=== PATIENT | female | born 1935 | race Caucasian/White ===

== ENCOUNTER 2018-06-30 08:33 | Inpatient (IN) ==
--- NOTE | 2018-06-30 09:00 | Emergency Department Note ---
Disposition Clinical Impression: Chest pain Qualifiers: Chest pain type: unspecified Qualified Code(s): R07.9 - Chest pain, unspecified Disposition: Admitted As Inpatient Condition: Fair Referrals: Sandee Willams CNP [Primary Care Provider] - Forms: ED Satisfaction Letter Time of Disposition: 10:04 General Adult HPI - General Chief complaint: ED Chest Pain Stated complaint: CP Time Seen by Provider: 06/30/18 08:38 Source: patient, EMS Mode of arrival: EMS Limitations: no limitations Nursing Notes Reviewed: Yes Vital Signs Reviewed: Yes - History of Present Illness HPI Narrative: Patient is an 83-year-old female with a past medical history of CAD with cardiac stent placed 2 years ago, CHF, uses 2L NC at night, HLD, HTN, thyroid disorder presents to the emergency room in for evaluation of chest pain that started yesterday evening at approximately 5:00 PM. The patient states that her chest pain was sudden in onset, left-sided, pressure-like, without radiation , exertion or nausea. The patient states that the chest pain continued throughout the night as a 7/10 pain and this morning at 7:00 AM she took 2 of her home nitroglycerin with no relief. The patient states at that time she decided to call the squad to come in to be evaluated and in the squad she received a full dose of aspirin and she received 2 sublingual nitroglycerin which resolved her pain. Only other complaint is a patient states over the past 2 weeks she has had a cold and a cough that brings up clear mucus. Pain Scale: 3 - Related Data Home Medications Medication Instructions Recorded Confirmed Ascorbate Calcium [Vitamin C] 500 mg PO AD 10/28/17 05/29/18 Aspirin [Lo-Dose Aspirin EC] 81 mg PO DAILY 10/28/17 05/29/18 Atorvastatin [Lipitor] 40 mg PO DAILY 10/28/17 05/29/18 Estrogens, Conjugated [Premarin] 0.9 mg PO AD 10/28/17 05/29/18 Gabapentin [Neurontin] 300 mg PO TID 10/28/17 05/29/18 Irbesartan [Avapro] 150 mg PO DAILY 10/28/17 05/29/18 Levothyroxine [Synthroid] 50 mcg PO DAILY 10/28/17 05/29/18 Multivit-Min/FA/Lycopen/Lutein 1 each PO DAILY 10/28/17 05/29/18 [Centrum Silver Tablet] Omeprazole [PriLOSEC] 40 mg PO DAILY 10/28/17 03/03/18 Turm/Ging/Sumit/Yuc/Smith/Viridiana/Hor 1 each PO DAILY 10/28/17 05/29/18 [Tumersaid Tablet] predniSONE [PredniSONE] 10 mg PO DAILY 10/28/17 05/29/18 Pantoprazole Sodium 40 mg PO DAILY 05/29/18 05/29/18 Previous Rx's Medication Instructions Recorded HYDROcodone/Acet 5/325 mg [[place] 1 tab PO Q6H #10 tab 10/28/17 5-325 mg] Budesonide/Formoterol 160/4.5 2 puff IH BIDR 5 Days #1 inhaler 05/30/18 [Symbicort 160/4.5] Furosemide [Lasix] 40 mg PO DAILY #30 tablet 05/30/18 Metoprolol [Lopressor] 50 mg PO BID #60 tablet 05/30/18 Allergies Allergy/AdvReac Type Severity Reaction Status Date / Time latex AdvReac See Verified 03/03/18 10:49 Comments Bandaids AdvReac Rash Uncoded 03/03/18 10:49 All systems ED: reviewed and negative except as stated. Review of Systems: As Per HPI Constitutional: Denies: fever Cardiovascular: Reports: chest pain. Denies: palpitations, dyspnea on exertion , orthopnea, edema, syncope, paroxysmal nocturnal dyspnea Respiratory: Denies: cough, dyspnea Gastrointestinal: Denies: abdominal pain, nausea, vomiting Musculoskeletal: Denies: back pain, neck pain Integumentary: Denies: rash Past Medical History - Past Medical History Attestation: Yes The following information was validated with the patient. Medical history: Reports: CHF, GERD, hyperlipidemia, hypertension, myocardial infarction, thyroid disease Psychiatric history: Reports: no psych history - Social History Smoking Status: Former smoker Smokeless Tobacco Status: No Alcohol use: Reports: none Drug use: Reports: none Physical Exam CONSTITUTIONAL: Well-appearing; well-nourished; A&O X 3, in no apparent distress. Vitals within normal limits. HEAD: Normocephalic; atraumatic EYES: PERRL, no scleral icterus NOSE: The nose is normal in appearance without rhinorrhea NECK: No JVD or distended neck veins RESP: Normal chest excursion with respiration; breath sounds clear and equal bilaterally, except for the right has minimal wheezing with expiration; no rhonchi or rales CARD: Regular rhythm, without murmurs, rub or gallop ABD: Non-distended; non-tender, soft, without rigidity, rebound or guarding,no pulsatile mass CHEST: No pain with palpation SKIN: Normal for age and race; warm and dry without diaphoresis ; no apparent lesions EXTREMITIES: Pulses are 2 plus and equal times 4 extremities, minimal bilateral pitting edema and no calf muscle pain - General Limitations: no limitations General appearance: alert, in no apparent distress Course Course Narrative: Patient is an 83-year-old female with a history of CAD including 1 stent presents for evaluation of chest pain that improved with nitroglycerin. She stated a full dose of aspirin and squad. Initial EKG done at 8:44 shows sinus rhythm at a rate of 64 bpm with no ischemia. The patient has a moderate HEART score, and thus will require admission to the hospital for her chest pain alone. Will continue with cardiac workup, patient asymptomatic at this time. Will provide a breathing treatment given history of cough over past couple of weeks with wheezing on exam. - Reevaluation(s) Reevaluation #1: Review the patient's medical records does appear that she was recently admitted to hospital for dyspnea. Patient had a echo done on March 312017 that showed EF of 60% with mild LV diastolic dysfunction. Discussed the patient's case with the hospitalist on-call, Dr. Vera, he agrees to accept the patient for Chest Pain. Discussed this with the patient she agrees. Time: 10:04 Vital Signs Temperature 98.5 F 06/30/18 08:36 Pulse Rate 64 06/30/18 08:36 Respiratory Rate 18 06/30/18 08:36 Blood Pressure 130/77 06/30/18 08:36 O2 Sat by Pulse Oximetry 96 06/30/18 08:36 Temperature 98.5 F 06/30/18 08:36 Pulse Rate 64 06/30/18 08:36 Respiratory Rate 16 06/30/18 09:41 Blood Pressure 130/77 06/30/18 08:36 O2 Sat by Pulse Oximetry 99 06/30/18 09:41 Oxygen Delivery Oxygen Delivery Room Air Medical Decision Making - Medical Records Medical records reviewed: Yes I reviewed the patient's medical records. - Lab Data Lab results reviewed: Yes I reviewed the patient's lab results. Result diagrams: 06/30/18 08:53 06/30/18 08:53 Lab Results 06/30/18 06/30/18 06/30/18 Range/Units 08:53 08:53 08:53 WBC 9.1 (4.3-11.1) K/mcL RBC 3.91 (3.82-4.97) M/mcL Hgb 12.8 (11.5-15.4) g/dL Hct 38.8 (35.3-44.9) % MCV 99.2 (83.0-100.0) fL MCH 32.7 (28.0-33.3) pg MCHC 33.0 (31.6-35.5) g/dL RDW 14.2 (11.5-14.5) % Plt Count 126 L (140-400) K/mcL MPV 11.1 (9.4-12.4) fL Immature Gran % 0.6 (0-4) % Seg Neutrophils % 60.8 % Lymphocytes % 25.1 % Monocytes % 9.4 % Eosinophils % 3.7 % Basophils % 0.4 % Neutrophils # 5.5 (1.6-8.9) K/mcL Lymphocytes # 2.3 (0.6-4.6) K/mcL Monocytes # 0.9 (0.0-1.3) K/mcL Eosinophils # 0.3 (0.0-0.6) K/mcL Basophils # 0.0 (0.0-0.2) K/mcL Immature Plt Fraction 7.1 H (1.1-6.1) % Sodium 138 (136-145) mEq/L Potassium 4.2 (3.5-5.1) mEq/L Chloride 103 (98-107) mEq/L Carbon Dioxide 31 H (23-29) mEq/L BUN 17 (8-23) mg/dL Creatinine 0.67 (0.60-1.20) mg/dL Est GFR ( Amer) > 60 (> 60) Est GFR (Non-Af Amer) > 60 (> 60) BUN/Creatinine Ratio 25 (6-26) Glucose 124 H (70-105) mg/dL Calculated Osmolality 289 (280-300) Calcium 8.5 L (8.6-10.3) mg/dL Troponin I 0.03 (< 0.04) ng/mL B-Natriuretic Peptide 641 H (Less than 100) pg/mL - Radiology Data Radiology results reviewed: Yes I reviewed the patient's radiology results. Chest X-Ray 06/30/18 08:38 IMPRESSION: No acute cardiopulmonary disease. D/ / 06/30/2018 09:04:37 Juan Diego Means MD / [facility] Interpreting Provider: Juan Diego Means MD - EKG Data EKG #1 EKG attestation: Yes I reviewed and interpreted this EKG. EKG results narrative: Initial EKG done at 8:44 shows sinus rhythm at a rate of 64 bpm. Normal axis. Intervals within normal limits. No signs of ST elevation, ST depression or Q waves present. No signs of ischemia.
[2018-06-30 09:02] LABS: Basophils % 0.4 %; Eosinophils # 0.3 K/mcL (0.0-0.6); Eosinophils % 3.7 %; Hematocrit 38.8 % (35.3-44.9); Hemoglobin 12.8 g/dL (11.5-15.4); Immature Granulocytes % 0.6 % (0-4); Immature Platelets 7.1 % (1.1-6.1); Lymphocytes # 2.3 K/mcL (0.6-4.6); Lymphocytes % 25.1 %; Mean Corpuscular Hemoglobin 32.7 pg (28.0-33.3); Mean Corpuscular Volume 99.2 fL (83.0-100.0); Mean Platelet Volume 11.1 fL (9.4-12.4); Monocytes # 0.9 K/mcL (0.0-1.3); Monocytes % 9.4 %; Neutrophils # 5.5 K/mcL (1.6-8.9); Platelet Count 126 K/mcL (140-400); Red Blood Count 3.91 M/mcL (3.82-4.97); Red Cell Distribution Width 14.2 % (11.5-14.5); Segmented Neutrophils % 60.8 %
[2018-06-30] MEDS ORDERED: Ipratropium/Albuterol Neb 3 ML IH ONE (09:17)
--- NOTE | 2018-06-30 09:33 | Emergency Department Note ---
Disposition Clinical Impression: Chest pain Qualifiers: Chest pain type: unspecified Qualified Code(s): R07.9 - Chest pain, unspecified Disposition: Admitted As Inpatient Condition: Fair General Adult HPI - General Chief complaint: ED Chest Pain Stated complaint: CP Time Seen by Provider: 06/30/18 08:38 Source: patient, EMS Mode of arrival: EMS Limitations: no limitations - History of Present Illness Pain Scale: 3 - Related Data Home Medications Medication Instructions Recorded Confirmed Aspirin [Lo-Dose Aspirin EC] 81 mg PO DAILY 10/28/17 06/30/18 Atorvastatin [Lipitor] 40 mg PO DAILY 10/28/17 06/30/18 Estrogens, Conjugated [Premarin] 0.9 mg PO DAILY 10/28/17 06/30/18 Gabapentin [Neurontin] 300 mg PO TID 10/28/17 06/30/18 Irbesartan [Avapro] 150 - 300 mg PO DAILY 10/28/17 06/30/18 Levothyroxine [Synthroid] 50 mcg PO DAILY 10/28/17 06/30/18 Multivit-Min/FA/Lycopen/Lutein 1 tab PO DAILY 10/28/17 06/30/18 [Centrum Silver Tablet] predniSONE [PredniSONE] 10 mg PO DAILY 10/28/17 06/30/18 Pantoprazole Sodium 40 mg PO DAILY 05/29/18 06/30/18 Furosemide [Lasix] 20 mg PO BID 06/30/18 06/30/18 Nitroglycerin [Nitrostat] 0.4 mg SL Q5M PRN MDD [id number] 06/30/18 06/30/18 Polyethylene Glycol 3350 [MiraLAX] 17 gm PO HS 06/30/18 06/30/18 Timolol [Betimol] 1 drop BOTH EYES BID 06/30/18 06/30/18 Turmeric Root Extract [Turmeric] 500 mg PO DAILY 06/30/18 06/30/18 Previous Rx's Medication Instructions Recorded Budesonide/Formoterol 160/4.5 2 puff IH BIDR 5 Days #1 inhaler 05/30/18 [Symbicort 160/4.5] Metoprolol [Lopressor] 50 mg PO BID #60 tablet 05/30/18 Allergies Allergy/AdvReac Type Severity Reaction Status Date / Time latex AdvReac Rash Verified 06/30/18 10:15 Bandaids AdvReac Rash Uncoded 03/03/18 10:49 Constitutional: Denies: fever Cardiovascular: Reports: chest pain. Denies: palpitations, dyspnea on exertion , orthopnea, edema, syncope, paroxysmal nocturnal dyspnea Respiratory: Denies: cough, dyspnea Gastrointestinal: Denies: abdominal pain, nausea, vomiting Musculoskeletal: Denies: back pain, neck pain Integumentary: Denies: rash Past Medical History - Past Medical History Medical history: Reports: CHF, GERD, hyperlipidemia, hypertension, myocardial infarction, thyroid disease Psychiatric history: Reports: no psych history - Social History Smoking Status: Former smoker Smokeless Tobacco Status: No Alcohol use: Reports: none Drug use: Reports: none Physical Exam - General Limitations: no limitations General appearance: alert, in no apparent distress Course Vital Signs Temperature 98.5 F 06/30/18 08:36 Pulse Rate 64 06/30/18 08:36 Respiratory Rate 18 06/30/18 08:36 Blood Pressure 130/77 06/30/18 08:36 O2 Sat by Pulse Oximetry 96 06/30/18 08:36 Temperature 97.8 F 06/30/18 11:25 Pulse Rate 82 06/30/18 11:25 Respiratory Rate 20 06/30/18 11:25 Blood Pressure 156/84 06/30/18 11:25 O2 Sat by Pulse Oximetry 96 06/30/18 11:25 Oxygen Delivery Oxygen Delivery Room Air Medical Decision Making - Lab Data Result diagrams: 06/30/18 08:53 06/30/18 08:53 Lab Results 06/30/18 06/30/18 06/30/18 Range/Units 08:53 08:53 08:53 WBC 9.1 (4.3-11.1) K/mcL RBC 3.91 (3.82-4.97) M/mcL Hgb 12.8 (11.5-15.4) g/dL Hct 38.8 (35.3-44.9) % MCV 99.2 (83.0-100.0) fL MCH 32.7 (28.0-33.3) pg MCHC 33.0 (31.6-35.5) g/dL RDW 14.2 (11.5-14.5) % Plt Count 126 L (140-400) K/mcL MPV 11.1 (9.4-12.4) fL Immature Gran % 0.6 (0-4) % Seg Neutrophils % 60.8 % Lymphocytes % 25.1 % Monocytes % 9.4 % Eosinophils % 3.7 % Basophils % 0.4 % Neutrophils # 5.5 (1.6-8.9) K/mcL Lymphocytes # 2.3 (0.6-4.6) K/mcL Monocytes # 0.9 (0.0-1.3) K/mcL Eosinophils # 0.3 (0.0-0.6) K/mcL Basophils # 0.0 (0.0-0.2) K/mcL Immature Plt Fraction 7.1 H (1.1-6.1) % Sodium 138 (136-145) mEq/L Potassium 4.2 (3.5-5.1) mEq/L Chloride 103 (98-107) mEq/L Carbon Dioxide 31 H (23-29) mEq/L BUN 17 (8-23) mg/dL Creatinine 0.67 (0.60-1.20) mg/dL Est GFR ( Amer) > 60 (> 60) Est GFR (Non-Af Amer) > 60 (> 60) BUN/Creatinine Ratio 25 (6-26) Glucose 124 H (70-105) mg/dL Calculated Osmolality 289 (280-300) Calcium 8.5 L (8.6-10.3) mg/dL Troponin I 0.03 (< 0.04) ng/mL B-Natriuretic Peptide 641 H (Less than 100) pg/mL Attestation Statement - Attestation Attestation: I examined this patient and my medical decision-making was reviewed with the CEO ZIFF DAVIS/PA/Advanced Practice Nurse/Resident Physician. I agree with the documented findings, disposition and treatment plan as described except to the extent set forth below. I did see the patient spoke with her and examined her and she does have chest discomfort which is concerning for ischemia. She has also had upper respiratory symptoms for the last several weeks. I did review her EKG showing normal sinus rhythm with a rate of 64 with some isolated T-wave inversion in aVL and T-wave flattening in lead V6. The flattening is new however it looks like she did have aVL inversion of the T-wave on a previous EKG and so the patient will have further assessment here including chest x-ray, labs, observation, monitoring [id number]
[2018-06-30 09:34] LABS: BUN/Creatinine Ratio 25 (6-26); Blood Urea Nitrogen 17 mg/dL (8-23); Calcium 8.5 mg/dL (8.6-10.3); Carbon Dioxide 31 mEq/L (23-29); Chloride 103 mEq/L (98-107); Glucose 124 mg/dL (70-105); Osmolality,Calculated 289 (280-300); Potassium 4.2 mEq/L (3.5-5.1); Sodium 138 mEq/L (136-145); eGFR For Non-African Americans > 60 (> 60)
[2018-06-30 09:35] LABS: Troponin I 0.03 ng/mL (< 0.04)
[2018-06-30] MEDS ORDERED: Naloxone 0.4 MG/ML INJ IVP PRN (12:54)
[2018-06-30] MEDS ORDERED: Ipratropium/Albuterol Neb 3 ML IH PRN (13:00)
--- NOTE | 2018-06-30 13:15 | Internal Med History&Physical ---
Date of Encounter: 06/30/18 Time of Encounter: 12:20 Internal Medicine - H&P: HPI Chief complaint: Chest Pain Admitted From: Home Plans for Post Hospital Care: Home History of present illness: Ms. Del Real is a 83 year old female with past medical history significant for CAD with stent, CHF, hyperlipidemia, DVT, and hypertension who presents for constant 6/10 aching left sided chest pain over the past few days (unable to recall exact day symptoms started) getting progressively worse. Also has had associated shortness of breath but states she has had URI symtpoms with productive cough with clear sputum past few weeks intermittently as well. No nausea, vomiting, diaphoresis, abdominal pain, or fever. Pain is somewhat exacerbated with movement and deep breathing but denies any alleviating factors. No recent travel, surgery, or immobilization. Has lower extremity edema chronically, but states its currently much imrpoved from her baseline. Received aspirin and nitroglycerin prior to arrival which she states has helped as she is currently nearly pain free. Also had duoneb treatment in ER for wheezing which she states has improved her breathing as well. Recent echocardiogram completed in March 2018 showed 60% EF. States last stress test was around three years ago. Past Med Surg Social Fam HX - Past Medical History Medical history: CHF, GERD, hyperlipidemia, hypertension, myocardial infarction , thyroid disease Psychiatric history: no psych history - Social History Smoking Status: Former smoker Smokeless Tobacco Status: No Alcohol use: none Drug use: none - Family History Daughter Hx Family Cancer: Yes Internal Medicine - H&P: Meds Aspirin [Lo-Dose Aspirin EC] 81 mg PO DAILY 10/28/17 [History] Atorvastatin [Lipitor] 40 mg PO DAILY 10/28/17 [History] Estrogens, Conjugated [Premarin] 0.9 mg PO DAILY 10/28/17 [History] Gabapentin [Neurontin] 300 mg PO TID 10/28/17 [History] Irbesartan [Avapro] 150 - 300 mg PO DAILY 10/28/17 [History] Levothyroxine [Synthroid] 50 mcg PO DAILY 10/28/17 [History] Multivit-Min/FA/Lycopen/Lutein [Centrum Silver Tablet] 1 tab PO DAILY 10/28/17 [ History] predniSONE [PredniSONE] 10 mg PO DAILY 10/28/17 [History] Pantoprazole Sodium 40 mg PO DAILY 05/29/18 [History] Budesonide/Formoterol 160/4.5 [Symbicort 160/4.5] 2 puff IH BIDR 5 Days #1 inhaler 05/30/18 [Rx] Metoprolol [Lopressor] 50 mg PO BID #60 tablet 05/30/18 [Rx] Furosemide [Lasix] 20 mg PO BID 06/30/18 [History] Nitroglycerin [Nitrostat] 0.4 mg SL Q5M PRN MDD [id number] 06/30/18 [History] Polyethylene Glycol 3350 [MiraLAX] 17 gm PO HS 06/30/18 [History] Timolol [Betimol] 1 drop BOTH EYES BID 06/30/18 [History] Turmeric Root Extract [Turmeric] 500 mg PO DAILY 06/30/18 [History] 3 Allergy/AdvReac Type Severity Reaction Status Date / Time latex AdvReac Rash Verified 06/30/18 10:15 Bandaids AdvReac Rash Uncoded 03/03/18 10:49 All Systems PM: A 10-system review of systems was performed and is negative for pertinent findings except as documented above in the HPI. - Constitutional Vitals: Temp Pulse Resp BP Pulse Ox 97.8 F 82 20 156/84 96 06/30/18 11:25 06/30/18 11:25 06/30/18 11:25 06/30/18 11:25 06/30/18 11:25 Exam: General: Alert and oriented. Skin:Normal color, no rash, no lesions. HEENT:EOM, pupils equal, round and reactive. Cardiovascular:Heart sounds distant. Normal S1 & S2, no rubs, murmurs or gallops. No JVD. Pulse regular. Lungs:Normal breath sounds, no wheezes or crackles. Abdomen:Soft, round, non-tender, no rigidity. Extremities:No deformity, tenderness, or clubbing. Non pitting bilateral lower extremity edema. Neurological:Normal cognition and motor skills. Pulses:Carotid and radial pulses normal +2. Rest of the physical exam is non contributory. Internal Med - H&P Results - Labs CBC & Chem 7: 06/30/18 08:53 06/30/18 08:53 - Assessment and plan (1) Chest pain Current Visit: Yes Status: Acute Assessment and plan: Continuous lunchroom monitor. Initial troponin in ER negative, serial troponins ordered. Cardiac diet. Stress test ordered. Qualifiers: Chest pain type: unspecified Qualified Code(s): R07.9 - Chest pain, unspecified (2) Shortness of breath Current Visit: Yes Status: Acute Assessment and plan: Duoneb treatments as needed. Oxygen at night and as needed to maintain saturation greater than 92%. (3) CHF (congestive heart failure) Current Visit: No Status: Chronic Assessment and plan: Continue home medications. Qualifiers: Heart failure type: diastolic Heart failure chronicity: chronic Qualified Code(s): I50.32 - Chronic diastolic (congestive) heart failure (4) Hypertension Current Visit: No Status: Chronic Assessment and plan: Continue home medications. Qualifiers: Hypertension type: essential hypertension Qualified Code(s): I10 - Essential (primary) hypertension - Time Spent With Patient Total time spent is greater than 50% in coordination of care (as documented) at patient's floor/unit and/or counseling patient:
[2018-06-30] MEDS ORDERED: NON-FORMULARY MEDICATION 1 EACH EACH (Turmeric Root Extract [Turmeric] 500 MG) PO SCH (13:30)
[2018-06-30] MEDS: Multivit/Ca/Min/Fe/FA 1 TAB TABLET PO SCH (14:21)
[2018-06-30] MEDS: Gabapentin 300 MG CAPSULE PO SCH ×2 (14:21→20:19)
[2018-06-30] MEDS: Aspirin Enteric Coated 81 MG Tablet PO SCH (14:22)
[2018-06-30] MEDS: predniSONE 10 MG TABLET PO SCH (14:22)
--- NOTE | 2018-06-30 17:08 | Electrocardiograph Report ---
[place] [address] Test Date: 2018-06-30 Pat Name: Cristina Del Real Department: [id number] Room: [facility] Gender: F Flooring Sales Manager: : 1935 Requested By: Scotty Lopez Order Number: [id number] Reading MD: Rachell Collazo Measurements Intervals [place] Rate: 64 P: 15 NE: 146 QRS: 61 QRSD: 118 T: 95 QT: 412 QTc: 426 Interpretive Statements Sinus rhythm Nonspecific intraventricular conduction delay Electronically Signed On 06-30-2018 17:06:56 EDT by Rachell Collazo
[2018-06-30] MEDS: Furosemide 20 MG TABLET PO SCH (17:09)
[2018-06-30] MEDS: Budesonide/Formoterol 160/4.5 1 PUFF INH IH SCH (20:40)
[2018-07-01 00:45] LABS: Basophils % 0.4 %; Eosinophils # 0.1 K/mcL (0.0-0.6); Eosinophils % 0.8 %; Hematocrit 38.1 % (35.3-44.9); Hemoglobin 12.7 g/dL (11.5-15.4); Immature Granulocytes % 0.4 % (0-4); Lymphocytes # 0.9 K/mcL (0.6-4.6); Lymphocytes % 11.7 %; Mean Corpuscular HGB Conc 33.3 g/dL (31.6-35.5); Mean Corpuscular Hemoglobin 32.4 pg (28.0-33.3); Mean Corpuscular Volume 97.2 fL (83.0-100.0); Monocytes # 0.5 K/mcL (0.0-1.3); Monocytes % 6.5 %; Neutrophils # 6.2 K/mcL (1.6-8.9); Platelet Count 129 K/mcL (140-400); Red Blood Count 3.92 M/mcL (3.82-4.97); Red Cell Distribution Width 14.1 % (11.5-14.5); Segmented Neutrophils % 80.2 %
[2018-07-01 01:05] LABS: BUN/Creatinine Ratio 20 (6-26); Blood Urea Nitrogen 13 mg/dL (8-23); Calcium 8.7 mg/dL (8.6-10.3); Carbon Dioxide 26 mEq/L (23-29); Chloride 104 mEq/L (98-107); Glucose 230 mg/dL (70-105); Osmolality,Calculated 291 (280-300); Potassium 4.4 mEq/L (3.5-5.1); Sodium 137 mEq/L (136-145); eGFR For Non-African Americans > 60 (> 60)
[2018-07-01] MEDS ORDERED: Regadenoson 0.4 MG/5 ML SYRINGE IVP ONE (05:45)
[2018-07-01] MEDS: *HR* Enoxaparin 40 MG/0.4 ML SYRINGE SQ SCH (06:15)
[2018-07-01] MEDS: Aspirin Enteric Coated 81 MG Tablet PO SCH (07:56)
[2018-07-01] MEDS: Gabapentin 300 MG CAPSULE PO SCH ×3 (08:00→20:29)
[2018-07-01] MEDS: Multivit/Ca/Min/Fe/FA 1 TAB TABLET PO SCH (08:00)
[2018-07-01] MEDS: predniSONE 10 MG TABLET PO SCH (08:00)
[2018-07-01] MEDS: Furosemide 20 MG TABLET PO SCH ×2 (08:03→17:59)
--- NOTE | 2018-07-01 08:51 | Internal Med Progress Note ---
Hospitalist Progress Note - Encounter Date of Encounter: 07/01/18 Time of Encounter: 13:15 - Subjective Interval History: back from fist part of stress test. No further epsidoe of chest pain/pressure. Describes crushing left sided chest pain that alleviated with nitro and asa enroute to hospital. Denies any associated n/v/sob/diaphoresis. She very much wants to leave to go to a [facility] at [facility] tomorrow. Recommendation is that give the sudden severe symptoms she had and cadiac history she has, that she remain inpt for completion of stress test. She denies any recent immobilization, is quite active at home. Denies calf pain or swelling. No sob, no hypoxia on room air here. uses o2 nc at home nocturnally. Has had dry hacking cough, no wheezing, which has improved in recent days. Denies abd pain, heartburn, indigestion. She routinely has episdes of loose stools at home intermittently. Bms today are her usual - Exam Vitals: Temp Pulse Resp BP Pulse Ox 97.4 F L 67 16 158/81 93 07/01/18 07:14 07/01/18 07:14 07/01/18 07:14 07/01/18 07:14 07/01/18 07:14 Exam: General: awake, alert, appears stated age HEENT:EOM intact, pupils equal, round, moist mucus membranes Cardiovascular:regular rate and rhythm, normal S1 & S2, no murmurs . No JVD. + 1 pitting bl lower extremity edema Lungs:Normal breath sounds, no wheezes, or crackles. Normal respiratory effort Abdomen:Soft, non-tender, non-distended, + bowel sounds Extremities:calf size equal bl, negative magalie Neurological: AAOx3 Skin:Normal color, no rash, no pallor - Assessment and Plan (1) Chest pain Current Visit: Yes Status: Acute Assessment and Plan: With hx of CAD rule out ACS, may be related to URI, history not c/w PE or aortic dissection -CXR neg -serial trops neg -ekg sinus rhythm No signs of ST elevation, ST depression, isolated T-wave inversion in aVL and T-wave flattening in lead V6. -echo done on March 312017 that showed EF of 60% with mild LV diastolic dysfunction. -Cardiac diet -Continuous cardiac surgeon. -Stress test ordered though will not be available to complete until tuesday -cont to monotri for return of symptoms given sx alleviation with asa and nitro -cont treatment for sob as below and cad/chf home meds (2) Shortness of breath Current Visit: Yes Status: Acute Assessment and Plan: Likely related to URI given assoicated sx report vs cardiac etiology with work up above -CXR neg -check viral panel -cont home symbicort and nocturnal O2 (no documented dx of copd/asthma) -Duoneb treatments as needed. -Oxygen NC prn. (3) CAD (coronary artery disease) Current Visit: Yes Status: Chronic Assessment and Plan: Hx [place] 2015, she deneis stent placement -prior echo as above -cont asa + statin + bb + arb -cp work up as above -will consider cards consult if she remains in hospital without signing out AMA , is new to the area and has seen Dr Maya once before (4) Hypertension Current Visit: No Status: Chronic Assessment and Plan: Continue home medications. (5) CHF (congestive heart failure) Current Visit: No Status: Chronic Assessment and Plan: Diastolic with most recent EF 60%, NOT in exacerbation clinically despite bnp 600s -cxr without effusions, le edema is reported to be better than baseline Continue home asa, statin, bb, arb, lasix -i/os, weights DVT Prophylaxis: lovenox - Time Spent with Patient Total time spent is greater than 50% in coordination of care (as documented) at patient's floor/unit and/or counseling patient: 25 - 35 minutes Plan of Care Discussed with: patient Internal Medicine: Result - Labs CBC & Chem 7: 07/01/18 00:33 07/01/18 00:33 Labs: Short CBC 07/01/18 Range/Units 00:33 WBC 7.7 (4.3-11.1) K/mcL Hgb 12.7 (11.5-15.4) g/dL Hct 38.1 (35.3-44.9) % Plt Count 129 L (140-400) K/mcL Neutrophils # 6.2 (1.6-8.9) K/mcL BMP 07/01/18 00:33 Sodium 137 Potassium 4.4 Chloride 104 Carbon Dioxide 26 BUN 13 Creatinine 0.66 Glucose 230 H Calcium 8.7 Cardiac Enzymes 09/06/30/18 07/01/18 Range/Units 12:50 18:48 00:33 Troponin I 0.03 < 0.03 < 0.03 (< 0.04) ng/mL Consult Discharge Plan - Plan Referrals: Sandee Willams CNP [Primary Care Provider] - (1) Chest pain Qualifiers: Chest pain type: unspecified Qualified Code(s): R07.9 - Chest pain, unspecified (3) CAD (coronary artery disease) Qualifiers: Coronary Disease-Associated Artery/Lesion type: unspecified vessel or lesion type [place] vs. transplanted heart: unspecified whether [place] or transplanted heart Associated angina: with unspecified angina Qualified Code(s): I25.119 - Atherosclerotic heart disease of [place] coronary artery with unspecified angina pectoris (4) Hypertension Qualifiers: Hypertension type: essential hypertension Qualified Code(s): I10 - Essential (primary) hypertension (5) CHF (congestive heart failure) Qualifiers: Heart failure type: diastolic Heart failure chronicity: chronic Qualified Code(s): I50.32 - Chronic diastolic (congestive) heart failure
[2018-07-01] MEDS: Budesonide/Formoterol 160/4.5 1 PUFF INH IH SCH ×2 (11:03→20:38)
[2018-07-01 14:42] LABS: Adenovirus Not Detected (Not Detect); Bordetella Pertussis Not Detected (Not Detect); Coronavirus 229E Not Detected (Not Detect); Coronavirus HKU1 Not Detected (Not Detect); Coronavirus NL63 Not Detected (Not Detect); Coronavirus OC43 Not Detected (Not Detect); Human Metapneumovirus Not Detected (Not Detect); Human Rhinovirus/Enterovirus DETECTED (Not Detect); Influenza A Subtype 2009 H1 Not Detected (Not Detect); Influenza A Untypeable Not Detected (Not Detect); Influenza B Not Detected (Not Detect); Parainfluenza Virus 1 Not Detected (Not Detect); Parainfluenza Virus 2 Not Detected (Not Detect); Parainfluenza Virus 3 Not Detected (Not Detect); Parainfluenza Virus 4 Not Detected (Not Detect); Respiratory Syncytial Virus Not Detected (Not Detect)
[2018-07-01 14:43] LABS: Chlamydophila pneumoniae Not Detected (Not Detect); Mycoplasma pneumoniae Not Detected (Not Detect)
[2018-07-01] MEDS: Melatonin 3 MG TABLET PO PRN (22:57)
[2018-07-02] MEDS: *HR* Enoxaparin 40 MG/0.4 ML SYRINGE SQ SCH (05:41)
[2018-07-02] MEDS: Budesonide/Formoterol 160/4.5 1 PUFF INH IH SCH ×2 (08:11→21:55)
--- NOTE | 2018-07-02 09:01 | Internal Med Progress Note ---
Hospitalist Progress Note - Encounter Date of Encounter: 07/02/18 Time of Encounter: 10:30 - Subjective Interval History: awake. had epsiode left chest pain last night and this mornign at rest. no assoicated sob, n/v/diaphroesis. left chest with radiation to axilla pressure. No alleviated. agreeable to statying to complete stress test in am. Dry hacking cough overall improving. no sob with exertion. ambulated halls with last night and no sob or cp - Exam Vitals: Temp Pulse Resp BP Pulse Ox 97.6 F 79 16 165/85 92 07/02/18 07:08 07/02/18 07:08 07/02/18 08:11 07/02/18 07:08 07/02/18 08:11 Exam: General: awake, alert, appears stated age HEENT: pupils equal, round, moist mucus membranes Cardiovascular:regular rate and rhythm, normal S1 & S2, no murmurs . No JVD. + 1 pitting bl lower extremity edema Lungs:Normal breath sounds, no wheezes, or crackles. Normal respiratory effort on ra Neurological: AAOx3 Skin:Normal color, no rash, no pallor - Assessment and Plan (1) Chest pain Current Visit: Yes Status: Acute Assessment and Plan: With hx of CAD rule out ACS, may be related to URI, history not c/w PE or aortic dissection -CXR neg -serial trops neg -ekg sinus rhythm No signs of ST elevation, ST depression, isolated T-wave inversion in aVL and T-wave flattening in lead V6. -echo done on March 312017 that showed EF of 60% with mild LV diastolic dysfunction. 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 -Stress test ordered though will not be available to complete until tuesday -cont to monotri for return of symptoms given sx alleviation with asa and nitro -cont treatment for sob as below and cad/chf home meds (2) Shortness of breath Current Visit: Yes Status: Acute Assessment and Plan: 2/2 Rhinovirus/ Enterovirus URI given assoicated sx report vs cardiac etiology with work up above -CXR neg -viral panel +, droplet precautions -cont home symbicort and nocturnal O2 (no documented dx of copd/asthma) -Duoneb treatments as needed. -Oxygen NC prn. (3) CAD (coronary artery disease) Current Visit: Yes Status: Chronic Assessment and Plan: Hx [place] 2015, she denies stent placement -prior echo as above -cont asa + statin + bb + arb -cp work up as above -cards consult pending stress test read, has seen Dr Maya before (4) Hypertension Current Visit: No Status: Chronic Assessment and Plan: Continue home medications. cont to monitor will require outpt fu (5) CHF (congestive heart failure) Current Visit: No Status: Chronic Assessment and Plan: Diastolic with most recent EF 60%, NOT in exacerbation clinically despite bnp 600s -cxr without effusions, le edema is reported to be better than baseline Continue home asa, statin, bb, arb, lasix -i/os, weights DVT Prophylaxis: lovenox - Time Spent with Patient Total time spent is greater than 50% in coordination of care (as documented) at patient's floor/unit and/or counseling patient: Internal Medicine: Result - Labs CBC & Chem 7: 07/01/18 00:33 07/01/18 00:33 Consult Discharge Plan - Plan Instructions: Droplet Precautions (GEN) Referrals: Sandee Willams, COST CLERK [Primary Care Provider] - (1) Chest pain Qualifiers: Chest pain type: unspecified Qualified Code(s): R07.9 - Chest pain, unspecified (3) CAD (coronary artery disease) Qualifiers: Coronary Disease-Associated Artery/Lesion type: unspecified vessel or lesion type [place] vs. transplanted heart: unspecified whether [place] or transplanted heart Associated angina: with unspecified angina Qualified Code(s): I25.119 - Atherosclerotic heart disease of [place] coronary artery with unspecified angina pectoris (4) Hypertension Qualifiers: Hypertension type: essential hypertension Qualified Code(s): I10 - Essential (primary) hypertension (5) CHF (congestive heart failure) Qualifiers: Heart failure type: diastolic Heart failure chronicity: chronic Qualified Code(s): I50.32 - Chronic diastolic (congestive) heart failure
[2018-07-02] MEDS: Furosemide 20 MG TABLET PO SCH ×2 (09:15→18:04)
[2018-07-02] MEDS: predniSONE 10 MG TABLET PO SCH (09:15)
[2018-07-02] MEDS: Aspirin Enteric Coated 81 MG Tablet PO SCH (09:16)
[2018-07-02] MEDS: Gabapentin 300 MG CAPSULE PO SCH ×3 (09:17→19:43)
[2018-07-02] MEDS: Multivit/Ca/Min/Fe/FA 1 TAB TABLET PO SCH (09:18)
[2018-07-02] MEDS: Melatonin 3 MG TABLET PO PRN (22:21)
[2018-07-03] MEDS: *HR* Enoxaparin 40 MG/0.4 ML SYRINGE SQ SCH (05:35)
[2018-07-03 06:46] VITALS: BP 148/83
[2018-07-03] MEDS: Aspirin Enteric Coated 81 MG Tablet PO SCH (07:21)
[2018-07-03] MEDS: Furosemide 20 MG TABLET PO SCH (07:21)
[2018-07-03] MEDS: predniSONE 10 MG TABLET PO SCH (07:22)
[2018-07-03] MEDS: Multivit/Ca/Min/Fe/FA 1 TAB TABLET PO SCH (07:22)
[2018-07-03] MEDS: Gabapentin 300 MG CAPSULE PO SCH (07:22)
--- NOTE | 2018-07-03 10:01 | Internal Med Progress Note ---
Hospitalist Progress Note - Encounter Date of Encounter: 07/03/18 Time of Encounter: 07:25 - Subjective Interval History: awake, about to go down to stress test. No chest pain, pressure overnight. denies sob, diaphroesis, n/v, abd pain. + dry hacking cough overall improving - Exam Vitals: Temp Pulse Resp BP Pulse Ox 98 F 71 16 148/83 98 07/03/18 06:37 07/03/18 06:37 07/03/18 06:37 07/03/18 06:37 07/03/18 06:37 Exam: General: awake, alert, appears stated age HEENT: pupils equal, round, moist mucus membranes Cardiovascular:regular rate and rhythm, normal S1 & S2, no murmurs . No JVD. + 1 pitting bl lower extremity edema Lungs:Normal breath sounds, no wheezes, or crackles. Normal respiratory effort on ra Neurological: AAOx3 Skin:Normal color, no rash, no pallor - Assessment and Plan (1) Chest pain Current Visit: Yes Status: Acute Assessment and Plan: With hx of CAD rule out ACS, may be related to URI, history not c/w PE or aortic dissection -CXR neg -serial trops neg -ekg sinus rhythm No signs of ST elevation, ST depression, isolated T-wave inversion in aVL and T-wave flattening in lead V6. -echo done on March 312017 that showed EF of 60% with mild LV diastolic dysfunction. 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 -cont to monotri for return of symptoms given sx alleviation with asa and nitro -cont treatment for sob as below and cad/chf home meds -07/03 completion of stress test started tuesday and fu results, cards consult if abnormal (2) Shortness of breath Current Visit: Yes Status: Resolved Assessment and Plan: 2/2 Rhinovirus/ Enterovirus URI given assoicated sx report vs cardiac etiology with work up above -CXR neg -viral panel +, droplet precautions -cont home symbicort and nocturnal O2 (no documented dx of copd/asthma) -Duoneb treatments as needed. -Oxygen [place] prn. (3) CAD (coronary artery disease) Current Visit: Yes Status: Chronic Assessment and Plan: Hx [place] 2015, she denies stent placement -prior echo as above -cont asa + statin + bb + arb -cp work up as above -cards consult pending stress test read, has seen Dr Maya before (4) Hypertension Current Visit: No Status: Chronic Assessment and Plan: Continue home medications. cont to monitor, adjustments as needed will require outpt fu (5) CHF (congestive heart failure) Current Visit: No Status: Chronic Assessment and Plan: Diastolic with most recent EF 60%, NOT in exacerbation clinically despite bnp 600s -cxr without effusions, le edema is reported to be better than baseline Continue home asa, statin, bb, arb, lasix -i/os, weights DVT Prophylaxis: lovenox - Time Spent with Patient Total time spent is greater than 50% in coordination of care (as documented) at patient's floor/unit and/or counseling patient: less than 15 minutes Plan of Care Discussed with: patient Internal Medicine: Result - Labs CBC & Chem 7: 07/01/18 00:33 07/01/18 00:33 Consult Discharge Plan - Plan Instructions: Droplet Precautions (GEN) Referrals: Sandee Willams, CNA INSTRUCTOR [Primary Care Provider] - (1) Chest pain Qualifiers: Chest pain type: unspecified Qualified Code(s): R07.9 - Chest pain, unspecified (3) CAD (coronary artery disease) Qualifiers: Coronary Disease-Associated Artery/Lesion type: unspecified vessel or lesion type [place] vs. transplanted heart: unspecified whether [place] or transplanted heart Associated angina: with unspecified angina Qualified Code(s): I25.119 - Atherosclerotic heart disease of [place] coronary artery with unspecified angina pectoris (4) Hypertension Qualifiers: Hypertension type: essential hypertension Qualified Code(s): I10 - Essential (primary) hypertension (5) CHF (congestive heart failure) Qualifiers: Heart failure type: diastolic Heart failure chronicity: chronic Qualified Code(s): I50.32 - Chronic diastolic (congestive) heart failure
[2018-07-03] MEDS: Budesonide/Formoterol 160/4.5 1 PUFF INH IH SCH (10:36)
--- NOTE | 2018-07-03 10:53 | Discharge Summary ---
- NOTES TO OUTPATIENT PROVIDER Notes to Outpatient Provider: stress test normal, fu scheduled with cards Dr Maya. +rhinovirus Orders not resulted at time of discharge: Pending orders 06/30/18 12:59 NM yue perf SPECT multi [NM] Routine 07/02/18 06:00 EKG [ECG 12 lead ECG] [ECG] AM 0600 Date of Encounter: 07/03/18 Time of Encounter: 07:25 - Discharge Diagnosis (1) Chest pain Priority: Primary Status: Resolved Assessment and Plan: With hx of CAD ruled out ACS and cardiac ischemia, suspect related to URI, history not c/w PE or aortic dissection -CXR neg -serial trops neg -ekg sinus rhythm No signs of ST elevation, ST depression, isolated T-wave inversion in aVL and T-wave flattening in lead V6. -echo done on March 312017 that showed EF of 60% with mild LV diastolic dysfunction. -Cardiac diet -Continuous cardiac rn. -cont to monotri for return of symptoms given sx alleviation with asa and nitro -cont treatment for sob as below and cad/chf home meds -07/03 completion of stress test: Perfusion imaging was negative for ischemia or infarct. Pharmacologic stress ECG is negative for ischemia at level of heart rate achieved. No appreciable change from baseline ECG. Gated EF > 70%. -dc to home, appt with Dr Maya scheduled for follow up Qualifiers: Chest pain type: unspecified Qualified Code(s): R07.9 - Chest pain, unspecified (2) Shortness of breath Priority: Secondary Status: Resolved Assessment and Plan: 2/2 Rhinovirus/ Enterovirus URI given assoicated sx report vs cardiac etiology with work up above -CXR neg -viral panel +, droplet precautions -cont home symbicort and nocturnal O2 (no documented dx of copd/asthma) (3) CAD (coronary artery disease) Priority: Secondary Status: Chronic Assessment and Plan: Hx [place] 2015, she denies stent placement -prior echo as above -cont asa + statin + bb + arb -cp work up as above -Dr Maya fu appt scheduled Qualifiers: Coronary Disease-Associated Artery/Lesion type: unspecified vessel or lesion type [place] vs. transplanted heart: unspecified whether [place] or transplanted heart Associated angina: with unspecified angina Qualified Code (s): I25.119 - Atherosclerotic heart disease of [place] coronary artery with unspecified angina pectoris (4) Hypertension Priority: Secondary Status: Chronic Assessment and Plan: Continue home medications. cont to monitor, adjustments as needed will require outpt fu Qualifiers: Hypertension type: essential hypertension Qualified Code(s): I10 - Essential (primary) hypertension (5) CHF (congestive heart failure) Priority: Secondary Status: Chronic Assessment and Plan: Diastolic with most recent EF 60%, NOT in exacerbation clinically despite bnp 600s -cxr without effusions, le edema is reported to be better than baseline Continue home asa, statin, bb, arb, lasix Qualifiers: Heart failure type: diastolic Heart failure chronicity: chronic Qualified Code(s): I50.32 - Chronic diastolic (congestive) heart failure Hospital course: Ms. Del Real is a 83 year old female with pmhx cad presented with left chest pain. Tele, ekgs, trops neg. She began stress test given her hx and sx relief with nitro + asa on a tuesday and remained inpt awaiting completion of two part test on a Tuesday, today. Nuclear stress neg for any signs of ischemia or perfusion defects, EF >70%. 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 She was dx with rhinovirus this admit. Conservative care and fu with pcp. Full hospital course as outlined in a/p section above Discharge discussed with: patient - Time Spent with Patient Total time spent providing and/or coordinating discharge services: Less than 30 minutes - Discharge Medications Home Medications: Aspirin [Lo-Dose Aspirin EC] 81 mg PO DAILY 10/28/17 [History] Atorvastatin [Lipitor] 40 mg PO DAILY 10/28/17 [History] Estrogens, Conjugated [Premarin] 0.9 mg PO DAILY 10/28/17 [History] Gabapentin [Neurontin] 300 mg PO TID 10/28/17 [History] Irbesartan [Avapro] 150 - 300 mg PO DAILY 10/28/17 [History] Levothyroxine [Synthroid] 50 mcg PO DAILY 10/28/17 [History] Multivit-Min/FA/Lycopen/Lutein [Centrum Silver Tablet] 1 tab PO DAILY 10/28/17 [ History] predniSONE [PredniSONE] 10 mg PO DAILY 10/28/17 [History] Pantoprazole Sodium 40 mg PO DAILY 05/29/18 [History] Budesonide/Formoterol 160/4.5 [Symbicort 160/4.5] 2 puff IH BIDR 5 Days #1 inhaler 05/30/18 [Rx] Metoprolol [Lopressor] 50 mg PO BID #60 tablet 05/30/18 [Rx] Furosemide [Lasix] 20 mg PO DAILY 06/30/18 [History] Nitroglycerin [Nitrostat] 0.4 mg SL Q5M PRN MDD [id number] 06/30/18 [History] Polyethylene Glycol 3350 [MiraLAX] 17 gm PO HS 06/30/18 [History] Timolol Maleate 0.5% 1 drop BOTH EYES BID 06/30/18 [History] Turmeric Root Extract [Turmeric] 500 mg PO DAILY 06/30/18 [History] Allergies/Adverse Reactions: 3 Allergy/AdvReac Type Severity Reaction Status Date / Time latex AdvReac Rash Verified 06/30/18 10:15 Bandaids AdvReac Rash Uncoded 03/03/18 10:49 Date of admission: 06/30/18 10:08 Primary care physician: Sandee Willams CNP Discharging clinician: Kellie Arnold - Constitutional Vitals: Temp Pulse Resp BP Pulse Ox 98 F 71 16 148/83 98 07/03/18 06:37 07/03/18 06:37 07/03/18 06:37 07/03/18 06:37 07/03/18 06:37 Exam: General: awake, alert, appears stated age HEENT: pupils equal, round, moist mucus membranes Cardiovascular:regular rate and rhythm, normal S1 & S2, no murmurs . No JVD. + 1 pitting bl lower extremity edema Lungs:Normal breath sounds, no wheezes, or crackles. Normal respiratory effort on ra Neurological: AAOx3 Skin:Normal color, no rash, no pallor - Patient Status Disposition: Home, Self-Care Condition: Good Overall status at discharge: patient is back to baseline - Discharge Instructions Instructions: Droplet Precautions (GEN) Follow Up With: Sandee Willams CNP [Primary Care Provider] - Shaq Maya MD [Partnered Physician] - - Diet and Activity Activity: increase activity as tolerated Diet: advance to your usual diet, low fat, low cholesterol, low salt diet
== END 2018-07-03 12:30 | disposition home or self-care (01) | DRG 153 ==
LOC: 3NENU 08:33 → EMEROOARM 08:33 → SUATTDRO 10:08 → 3NENU 11:17 → UNDODISOB 07-03 12:30
PROVIDERS: ADMIT Internal Medicine; ATTEND Internal Medicine

== ENCOUNTER 2019-07-30 16:20 | Inpatient (IN) ==
[2019-07-30] MEDS ORDERED: Ondansetron 4 MG/2 ML VIAL IVP PRN (17:55)
[2019-07-30] MEDS ORDERED: D5% in Water 1,000 ML IVC PRN (17:59)
[2019-07-30] MEDS ORDERED: Dextrose Gel 15 GM/37.5 ML TUBE PO PRN ×2 (17:59)
[2019-07-30] MEDS ORDERED: *HR* Dextrose 50 % in Water (Syg) 50 ML SYRINGE IVP PRN (17:59)
[2019-07-30] MEDS ORDERED: traMADol 50 MG TABLET PO PRN (18:13)
[2019-07-30] MEDS: *HR* Heparin 5,000 UNIT/ML VIAL SQ SCH (18:47)
[2019-07-30] MEDS ORDERED: Insulin DETEMIR 100 UNIT/ML X5UNITS SQ SCH (21:00)
[2019-07-30] MEDS ORDERED: hydrALAZINE 10 MG TABLET PO PRN (22:25)
[2019-07-31 04:01] LABS: Bilirubin,Urine Negative (Negative); Blood,Urine Trace (Negative); Clarity,Urine Clear (Clear); Color,Urine Yellow (Yellow); Glucose,Urine (UA) Normal (Normal); Ketones,Urine Negative (Negative); Leukocyte Esterase,Urine Negative (Negative); Nitrite,Urine Negative (Negative); Protein,Urine Trace mg/dL (Neg-Trace); Urobilinogen,Urine Normal (Normal)
[2019-07-31 04:04] LABS: Bacteria,Urine None Seen per hpf (None-Few); Hyaline Casts,Urine None Seen per lpf (None-Few); RBC,Urine 0-3 per hpf (0-3); Squamous Epithelial Cell,Urine Moderate per lpf (None-Few); WBC,Urine 0-3 per hpf (0-3)
[2019-07-31] MEDS: *HR* Heparin 5,000 UNIT/ML VIAL SQ SCH ×2 (06:09→16:54)
[2019-07-31 07:07] LABS: Basophils % 0.6 %; Eosinophils # 0.2 K/mcL (0.0-0.6); Eosinophils % 2.5 %; Hematocrit 48.2 % (35.3-44.9); Hemoglobin 15.3 g/dL (11.5-15.4); Immature Granulocytes % 0.3 % (0-4); Mean Corpuscular HGB Conc 31.7 g/dL (31.6-35.5); Mean Corpuscular Hemoglobin 30.6 pg (28.0-33.3); Mean Corpuscular Volume 96.4 fL (83.0-100.0); Mean Platelet Volume 10.1 fL (9.4-12.4); Monocytes # 0.6 K/mcL (0.0-1.3); Monocytes % 9.5 %; Neutrophils # 4.8 K/mcL (1.6-8.9); Platelet Count 115 K/mcL (140-400); Segmented Neutrophils % 72.1 %; White Blood Count 6.7 K/mcL (4.3-11.1)
[2019-07-31 07:30] LABS: BUN/Creatinine Ratio 27 (6-26); Blood Urea Nitrogen 15 mg/dL (8-23); Calcium 9.3 mg/dL (8.6-10.3); Carbon Dioxide 29 mEq/L (23-29); Chloride 101 mEq/L (98-107); Glucose 80 mg/dL (70-105); Magnesium 1.9 mg/dL (1.6-2.6); Osmolality,Calculated 290 (280-300); Phosphorous 3.3 mg/dL (2.7-4.5); Sodium 140 mEq/L (136-145); eGFR For African Americans > 60 (> 60); eGFR For Non-African Americans > 60 (> 60)
[2019-07-31] MEDS: Insulin LISPRO 300 UNITS/3 ML VIAL SQ SCH ×3 (07:55→16:54)
[2019-07-31] MEDS: Gabapentin 300 MG CAPSULE PO SCH ×4 (08:33→20:24)
[2019-07-31] MEDS ORDERED: Nitroglycerin 0.4 MG TAB.SUBL SL PRN (09:02)
[2019-07-31] MEDS: amLODIPine 5 MG TABLET PO SCH (16:54)
[2019-07-31] MEDS ORDERED: Furosemide 40 MG TABLET PO SCH (17:58)
[2019-07-31] MEDS ORDERED: Insulin DETEMIR 100 UNIT/ML X5UNITS SQ SCH (21:00)
[2019-07-31] MEDS: Furosemide 40 MG in 0.9 % Sodium Chloride 50 ML IV SCH (21:07)
[2019-08-01] MEDS ORDERED: *HR* Metoprolol 5 MG/5 ML VIAL IVP ONE (01:16)
[2019-08-01 04:52] LABS: Hematocrit 42.2 % (35.3-44.9); Hemoglobin 14.1 g/dL (11.5-15.4); Mean Corpuscular HGB Conc 33.4 g/dL (31.6-35.5); Mean Corpuscular Hemoglobin 30.8 pg (28.0-33.3); Mean Corpuscular Volume 92.1 fL (83.0-100.0); Mean Platelet Volume 10.7 fL (9.4-12.4); Platelet Count 133 K/mcL (140-400); Red Blood Count 4.58 M/mcL (3.82-4.97); Red Cell Distribution Width 18.6 % (11.5-14.5); White Blood Count 6.2 K/mcL (4.3-11.1)
[2019-08-01 05:10] LABS: BUN/Creatinine Ratio 16 (6-26); Blood Urea Nitrogen 13 mg/dL (8-23); Carbon Dioxide 36 mEq/L (23-29); Chloride 99 mEq/L (98-107); Glucose 70 mg/dL (70-105); Osmolality,Calculated 293 (280-300); Potassium 3.3 mEq/L (3.5-5.1); Sodium 142 mEq/L (136-145); eGFR For African Americans > 60 (> 60); eGFR For Non-African Americans > 60 (> 60)
[2019-08-01] MEDS: *HR* Heparin 5,000 UNIT/ML VIAL SQ SCH ×2 (05:52→16:22)
[2019-08-01] MEDS: Gabapentin 300 MG CAPSULE PO SCH ×3 (09:30→23:18)
[2019-08-01] MEDS: amLODIPine 5 MG TABLET PO SCH (09:31)
[2019-08-01] MEDS: Aspirin Enteric Coated 81 MG Tablet PO SCH (09:31)
[2019-08-01] MEDS: Furosemide 40 MG in 0.9 % Sodium Chloride 50 ML IV SCH (09:31)
[2019-08-01] MEDS: Isosorbide MONOnitrate (24 HR) 30 MG TAB.ER.24H PO SCH (09:31)
[2019-08-01] MEDS: Multivit/Ca/Min/Fe/FA 1 TAB TABLET PO SCH (09:31)
[2019-08-01] MEDS: Insulin LISPRO 300 UNITS/3 ML VIAL SQ SCH ×3 (09:32→17:55)
[2019-08-01] MEDS: Furosemide 40 MG/4 ML VIAL IVP SCH ×2 (13:30→16:21)
[2019-08-01] MEDS ORDERED: hydrALAZINE 25 MG TABLET PO PRN ×2 (16:52→17:04)
[2019-08-01] MEDS ORDERED: Insulin DETEMIR 100 UNIT/ML X5UNITS SQ SCH (21:00)
[2019-08-02] MEDS: *HR* Heparin 5,000 UNIT/ML VIAL SQ SCH (05:19)
[2019-08-02 05:45] LABS: Hematocrit 41.2 % (35.3-44.9); Hemoglobin 13.2 g/dL (11.5-15.4); Mean Corpuscular Hemoglobin 30.1 pg (28.0-33.3); Mean Corpuscular Volume 93.8 fL (83.0-100.0); Mean Platelet Volume 11.1 fL (9.4-12.4); Platelet Count 144 K/mcL (140-400); Red Blood Count 4.39 M/mcL (3.82-4.97); Red Cell Distribution Width 18.6 % (11.5-14.5); White Blood Count 5.6 K/mcL (4.3-11.1)
[2019-08-02 05:56] LABS: BUN/Creatinine Ratio 25 (6-26); Blood Urea Nitrogen 14 mg/dL (8-23); Calcium 8.9 mg/dL (8.6-10.3); Carbon Dioxide 34 mEq/L (23-29); Chloride 99 mEq/L (98-107); Glucose 100 mg/dL (70-105); Osmolality,Calculated 293 (280-300); Potassium 3.4 mEq/L (3.5-5.1); Sodium 141 mEq/L (136-145); eGFR For African Americans > 60 (> 60); eGFR For Non-African Americans > 60 (> 60)
[2019-08-02] MEDS: Furosemide 40 MG/4 ML VIAL IVP SCH (09:18)
[2019-08-02] MEDS: Isosorbide MONOnitrate (24 HR) 30 MG TAB.ER.24H PO SCH (09:18)
[2019-08-02] MEDS: Multivit/Ca/Min/Fe/FA 1 TAB TABLET PO SCH (09:19)
[2019-08-02] MEDS: Gabapentin 300 MG CAPSULE PO SCH (09:19)
[2019-08-02] MEDS: Insulin LISPRO 300 UNITS/3 ML VIAL SQ SCH ×2 (09:19→12:42)
[2019-08-02] MEDS: Aspirin Enteric Coated 81 MG Tablet PO SCH (09:19)
[2019-08-02 12:19] VITALS: BP 149/75
[2019-08-02] MEDS ORDERED: hydrALAZINE 25 MG TABLET PO SCH (16:00)
[2019-08-02] MEDS ORDERED: Furosemide 40 MG TABLET PO SCH (17:00)
== END 2019-08-02 14:20 | disposition home or self-care (01) | DRG 292 ==
LOC: 3BNU → SUATTDRO 17:08
PROVIDERS: ADMIT Internal Medicine; ATTEND Internal Medicine

== ENCOUNTER 2019-10-05 17:49 | Observation (INO) ==
[2019-10-05 20:20] LABS: Basophils # 0.1 K/mcL (0.0-0.2); Eosinophils # 0.3 K/mcL (0.0-0.6); Eosinophils % 4.3 %; Hematocrit 45.9 % (35.3-44.9); Immature Granulocytes % 0.2 % (0-4); Lymphocytes # 1.2 K/mcL (0.6-4.6); Mean Corpuscular HGB Conc 32.7 g/dL (31.6-35.5); Mean Corpuscular Hemoglobin 30.1 pg (28.0-33.3); Mean Corpuscular Volume 92.2 fL (83.0-100.0); Mean Platelet Volume 10.9 fL (9.4-12.4); Monocytes # 0.8 K/mcL (0.0-1.3); Monocytes % 13.4 %; Neutrophils # 3.7 K/mcL (1.6-8.9); Platelet Count 211 K/mcL (140-400); Red Blood Count 4.98 M/mcL (3.82-4.97); Red Cell Distribution Width 17.6 % (11.5-14.5); Segmented Neutrophils % 61.1 %; White Blood Count 6.1 K/mcL (4.3-11.1)
[2019-10-05 20:23] LABS: INR 1.5; Prothrombin Time 16.5 Seconds (9.4-12.1)
[2019-10-05 20:38] LABS: BUN/Creatinine Ratio 21 (6-26); Blood Urea Nitrogen 11 mg/dL (8-23); Calcium 9.5 mg/dL (8.6-10.3); Carbon Dioxide 31 mEq/L (23-29); Chloride 98 mEq/L (98-107); Glucose 106 mg/dL (70-105); Osmolality,Calculated 282 (280-300); Potassium 3.8 mEq/L (3.5-5.1); Sodium 136 mEq/L (136-145); eGFR For African Americans > 60 (> 60); eGFR For Non-African Americans > 60 (> 60)
[2019-10-05 20:42] LABS: Troponin I 0.04 ng/mL (< 0.04)
[2019-10-05] MEDS ORDERED: Isovue-370 500 ML BOTTLE IVP ONE (20:42)
[2019-10-05 22:13] LABS: Bilirubin,Urine Negative (Negative); Blood,Urine Negative (Negative); Clarity,Urine Clear (Clear); Color,Urine Yellow (Yellow); Glucose,Urine (UA) Normal (Normal); Ketones,Urine Negative (Negative); Leukocyte Esterase,Urine Negative (Negative); Nitrite,Urine Negative (Negative); Protein,Urine Negative (Neg-Trace); Specific Gravity,Urine 1.018 (1.010-1.025); Urobilinogen,Urine Normal (Normal)
[2019-10-06] MEDS ORDERED: Naloxone 0.4 MG/ML INJ IVP PRN (02:41)
[2019-10-06] MEDS ORDERED: Nitroglycerin 0.4 MG TAB.SUBL SL PRN (02:47)
[2019-10-06] MEDS ORDERED: Dextrose Gel 15 GM/37.5 ML TUBE PO PRN ×2 (02:55)
[2019-10-06] MEDS ORDERED: *HR* Dextrose 50 % in Water (Syg) 50 ML SYRINGE IVP PRN (02:55)
[2019-10-06] MEDS ORDERED: D5% in Water 1,000 ML IVC PRN (02:55)
[2019-10-06 03:54] LABS: Basophils # 0.1 K/mcL (0.0-0.2); Basophils % 0.9 %; Eosinophils # 0.2 K/mcL (0.0-0.6); Eosinophils % 3.7 %; Hematocrit 43.5 % (35.3-44.9); Hemoglobin 14.1 g/dL (11.5-15.4); Immature Granulocytes % 0.3 % (0-4); Lymphocytes # 1.1 K/mcL (0.6-4.6); Lymphocytes % 17.6 %; Mean Corpuscular HGB Conc 32.4 g/dL (31.6-35.5); Mean Corpuscular Hemoglobin 30.4 pg (28.0-33.3); Mean Corpuscular Volume 93.8 fL (83.0-100.0); Monocytes # 0.9 K/mcL (0.0-1.3); Monocytes % 13.2 %; Neutrophils # 4.2 K/mcL (1.6-8.9); Platelet Count 197 K/mcL (140-400); Red Blood Count 4.64 M/mcL (3.82-4.97); Red Cell Distribution Width 17.4 % (11.5-14.5); Segmented Neutrophils % 64.3 %; White Blood Count 6.5 K/mcL (4.3-11.1)
[2019-10-06 04:02] LABS: INR 1.4; Prothrombin Time 15.8 Seconds (9.4-12.1)
[2019-10-06 04:15] LABS: Alanine Aminotransferase 15 Units/L (7-52); Albumin 3.5 g/dL (3.5-5.7); Albumin/Globulin Ratio 1.2 (1.1-2.2); Alkaline Phosphatase 170 Units/L (34-104); Aspartate Amino Transferase 29 Units/L (13-39); BUN/Creatinine Ratio 19 (6-26); Bilirubin,Total 1.5 mg/dL (0.3-1.0); Blood Urea Nitrogen 10 mg/dL (8-23); Calcium 9.2 mg/dL (8.6-10.3); Carbon Dioxide 32 mEq/L (23-29); Chloride 96 mEq/L (98-107); Globulin 2.9 g/dL (2.4-3.5); Glucose 110 mg/dL (70-105); Magnesium 1.4 mg/dL (1.6-2.6); Osmolality,Calculated 284 (280-300); Phosphorous 3.5 mg/dL (2.7-4.5); Potassium 3.3 mEq/L (3.5-5.1); Sodium 137 mEq/L (136-145); Total Protein 6.4 g/dL (6.4-8.9); eGFR For African Americans > 60 (> 60); eGFR For Non-African Americans > 60 (> 60)
[2019-10-06 04:27] LABS: Thyroid Stimulating Hormone 5.207 mcIU/mL (0.340-5.600)
[2019-10-06] MEDS: cloNIDine HCl 0.1 MG TABLET PO PRN ×2 (05:15→17:58)
[2019-10-06] MEDS: Furosemide 40 MG/4 ML VIAL IVP SCH ×2 (05:15→16:15)
[2019-10-06] MEDS: *HR* Heparin 5,000 UNIT/ML VIAL SQ SCH ×2 (05:16→17:58)
[2019-10-06] MEDS ORDERED: Potassium Chloride Elixir 20 MEQ/15 ML UDC PO ONE (05:27)
[2019-10-06] MEDS ORDERED: Aspirin Enteric Coated 81 MG Tablet PO ONE (05:27)
[2019-10-06 06:34] LABS: Bilirubin,Urine Negative (Negative); Blood,Urine Negative (Negative); Clarity,Urine Clear (Clear); Color,Urine Yellow (Yellow); Glucose,Urine (UA) Normal (Normal); Ketones,Urine Negative (Negative); Leukocyte Esterase,Urine Negative (Negative); Nitrite,Urine Negative (Negative); PH,Urine 7.5 pH Units (5.0-8.0); Protein,Urine Negative (Neg-Trace); Urobilinogen,Urine Normal (Normal)
[2019-10-06 08:26] LABS: Estimated Average Glucose 151 mg/dl
[2019-10-06] MEDS: Insulin LISPRO 300 UNITS/3 ML VIAL SQ SCH ×3 (08:39→16:11)
[2019-10-06] MEDS: Gabapentin 300 MG CAPSULE PO SCH ×3 (08:52→20:03)
[2019-10-06] MEDS: Multivit/Ca/Min/Fe/FA 1 TAB TABLET PO SCH (08:53)
[2019-10-06] MEDS: Isosorbide MONOnitrate (24 HR) 30 MG TAB.ER.24H PO SCH (08:53)
[2019-10-06] MEDS ORDERED: Insulin DETEMIR 100 UNIT/ML X5UNITS SQ SCH (21:00)
[2019-10-06] MEDS: Insulin DETEMIR 100 UNIT/ML X5UNITS SQ SCH (22:27)
[2019-10-07] MEDS: Insulin DETEMIR 100 UNIT/ML X5UNITS SQ SCH (01:01)
[2019-10-07] MEDS: *HR* Heparin 5,000 UNIT/ML VIAL SQ SCH (05:39)
[2019-10-07 07:04] VITALS: BP 145/78
[2019-10-07] MEDS: Insulin LISPRO 300 UNITS/3 ML VIAL SQ SCH (08:57)
[2019-10-07] MEDS: Gabapentin 300 MG CAPSULE PO SCH (09:35)
[2019-10-07] MEDS: Isosorbide MONOnitrate (24 HR) 30 MG TAB.ER.24H PO SCH (09:35)
[2019-10-07] MEDS: Furosemide 40 MG/4 ML VIAL IVP SCH (09:35)
[2019-10-07] MEDS: Multivit/Ca/Min/Fe/FA 1 TAB TABLET PO SCH (09:35)
== END 2019-10-07 14:30 | disposition home or self-care (01) ==
LOC: 3BNU 17:49 → EMEROOARM 17:49 → 3BNU 23:16
PROVIDERS: ADMIT Family Medicine; ATTEND Family Medicine

== ENCOUNTER 2020-06-19 14:31 | Inpatient (IN) ==
[2020-06-19 15:28] LABS: Basophils % 0.4 %; Eosinophils # 0.2 K/mcL (0.0-0.6); Eosinophils % 2.2 %; Hematocrit 39.3 % (35.3-44.9); Hemoglobin 12.6 g/dL (11.5-15.4); Immature Granulocytes % 0.1 % (0-4); Lymphocytes # 0.5 K/mcL (0.6-4.6); Lymphocytes % 6.5 %; Mean Corpuscular HGB Conc 32.1 g/dL (31.6-35.5); Mean Corpuscular Hemoglobin 29.4 pg (28.0-33.3); Mean Corpuscular Volume 91.6 fL (83.0-100.0); Mean Platelet Volume 11.2 fL (9.4-12.4); Monocytes # 1.2 K/mcL (0.0-1.3); Monocytes % 14.9 %; Neutrophils # 6.1 K/mcL (1.6-8.9); Platelet Count 177 K/mcL (140-400); Red Blood Count 4.29 M/mcL (3.82-4.97); Red Cell Distribution Width 17.2 % (11.5-14.5); Segmented Neutrophils % 75.9 %; White Blood Count 8.1 K/mcL (4.3-11.1)
[2020-06-19 15:49] LABS: Acetaminophen < 10 mcg/mL (10-20); Alanine Aminotransferase 24 Units/L (7-52); Albumin 3.3 g/dL (3.5-5.7); Albumin/Globulin Ratio 0.9 (1.1-2.2); Alkaline Phosphatase 246 Units/L (34-104); Aspartate Amino Transferase 63 Units/L (13-39); BUN/Creatinine Ratio 42 (6-26); Bilirubin,Direct 0.8 mg/dL (0.0-0.2); Bilirubin,Total 1.8 mg/dL (0.3-1.0); Blood Urea Nitrogen 31 mg/dL (8-23); Calcium 9.4 mg/dL (8.6-10.3); Carbon Dioxide 37 mEq/L (23-29); Chloride 91 mEq/L (98-107); Ethanol < 10 mg/dL (Less than 10); Globulin 3.5 g/dL (2.4-3.5); Glucose 121 mg/dL (70-105); Osmolality,Calculated 288 (280-300); Potassium 3.5 mEq/L (3.5-5.1); Sodium 135 mEq/L (136-145); Total Protein 6.8 g/dL (6.4-8.9); Troponin I 0.05 ng/mL (< 0.04); eGFR For African Americans > 60 (> 60); eGFR For Non-African Americans > 60 (> 60)
[2020-06-19 16:12] LABS: Thyroid Stimulating Hormone 4.649 mcIU/mL (0.340-5.600)
[2020-06-19 17:04] LABS: Bilirubin,Urine Negative (Negative); Blood,Urine Moderate (Negative); Clarity,Urine Turbid (Clear); Glucose,Urine (UA) Normal (Normal); Ketones,Urine Negative (Negative); Leukocyte Esterase,Urine Large (Negative); Nitrite,Urine Negative (Negative); Protein,Urine Trace mg/dL (Neg-Trace); Specific Gravity,Urine 1.015 (1.010-1.025); Urobilinogen,Urine Normal (Normal)
[2020-06-19 17:20] LABS: Color,Urine Light Yellow (Yellow)
[2020-06-19] MEDS ORDERED: Aspirin 325 MG TABLET PO ONE (17:37)
[2020-06-19] MEDS ORDERED: cefTRIAXone 1,000 MG in Water for inj. (sterile) 10 ML IVP ONE (17:47)
[2020-06-19] MEDS ORDERED: Naloxone 0.4 MG/ML INJ IVP PRN (17:52)
[2020-06-19] MEDS ORDERED: *HR* Dextrose 50 % in Water (Vial) 50 ML VIAL IVP PRN (17:58)
[2020-06-19] MEDS ORDERED: D5% in Water 1,000 ML IVC PRN (17:58)
[2020-06-19] MEDS ORDERED: Ipratropium/Albuterol Neb 3 ML IH PRN (17:58)
[2020-06-19] MEDS ORDERED: Dextrose Gel 15 GM/37.5 ML TUBE PO PRN ×2 (17:58)
[2020-06-19] MEDS ORDERED: Nitroglycerin 0.4 MG TAB.SUBL SL PRN (17:59)
[2020-06-19 18:17] LABS: Hyaline Casts,Urine None Seen per lpf (None Seen); RBC,Urine 0-3 per hpf (0-3); Renal Epithelial Cells,Urine Moderate per hpf (None-Few); Squamous Epithelial Cell,Urine Many per hpf (None-Few); Transitional Epi Cells,Urine Few per hpf (None-Few); WBC,Urine 50-100 per hpf (0-3)
[2020-06-19 18:18] LABS: Bacteria,Urine Few per hpf (None-Few)
[2020-06-19 19:24] LABS: ABG Base Excess 12 mEq/L (-2 to 3); ABG HCO3 38 mEq/L (21-27); ABG Oxygen Saturation 97 % (95-98); ABG PCO2 53 mmHg (35-45); ABG PH 7.46 pH Units (7.32-7.45); ABG PO2 92 mmHg (85-104); ABG TCO2 40 mEq/L (20-26)
[2020-06-19] MEDS: Furosemide 20 MG/2 ML VIAL IVP SCH (20:14)
[2020-06-19 20:44] LABS: INR 1.4; Prothrombin Time 15.9 Seconds (9.4-12.1)
[2020-06-19 20:46] LABS: Activated Partial Thrombo Time 43.2 Seconds (26.0-36.0)
[2020-06-20 03:03] LABS: Basophils % 0.7 %; Eosinophils # 0.3 K/mcL (0.0-0.6); Eosinophils % 5.9 %; Hematocrit 39.9 % (35.3-44.9); Hemoglobin 12.8 g/dL (11.5-15.4); Immature Granulocytes % 0.2 % (0-4); Lymphocytes # 0.7 K/mcL (0.6-4.6); Lymphocytes % 13.3 %; Mean Corpuscular HGB Conc 32.1 g/dL (31.6-35.5); Mean Corpuscular Hemoglobin 29.8 pg (28.0-33.3); Mean Platelet Volume 10.7 fL (9.4-12.4); Monocytes # 0.8 K/mcL (0.0-1.3); Monocytes % 15.3 %; Neutrophils # 3.5 K/mcL (1.6-8.9); Platelet Count 146 K/mcL (140-400); Red Blood Count 4.29 M/mcL (3.82-4.97); Segmented Neutrophils % 64.6 %; White Blood Count 5.4 K/mcL (4.3-11.1)
[2020-06-20 03:19] LABS: Alanine Aminotransferase 22 Units/L (7-52); Albumin/Globulin Ratio 0.9 (1.1-2.2); Alkaline Phosphatase 211 Units/L (34-104); Aspartate Amino Transferase 54 Units/L (13-39); BUN/Creatinine Ratio 48 (6-26); Bilirubin,Total 1.7 mg/dL (0.3-1.0); Blood Urea Nitrogen 28 mg/dL (8-23); Calcium 9.4 mg/dL (8.6-10.3); Carbon Dioxide 37 mEq/L (23-29); Chloride 91 mEq/L (98-107); Globulin 3.4 g/dL (2.4-3.5); Glucose 81 mg/dL (70-105); Magnesium 1.5 mg/dL (1.6-2.6); Osmolality,Calculated 289 (280-300); Potassium 3.1 mEq/L (3.5-5.1); Sodium 137 mEq/L (136-145); Total Protein 6.4 g/dL (6.4-8.9); eGFR For African Americans > 60 (> 60); eGFR For Non-African Americans > 60 (> 60)
[2020-06-20] MEDS: *HR* HYDROcodone/Acet 5/325 mg TABLET PO PRN ×2 (05:30→23:27)
[2020-06-20] MEDS: *HR* Heparin 5,000 UNIT/ML VIAL SQ SCH ×2 (05:31→18:10)
[2020-06-20] MEDS: Insulin LISPRO 300 UNITS/3 ML VIAL SQ SCH ×3 (07:34→16:59)
[2020-06-20] MEDS ORDERED: Potassium Chloride 40 MEQ, Lidocaine 1% 2 ML in 0.9 % Sodium Chloride 500 ML IVPB ONE (08:16)
[2020-06-20] MEDS ORDERED: Perflutren Lipid Microsphere 1.3 ML in 0.9 % Sodium Chloride 8.7 ML IVP PRN (08:18)
[2020-06-20] MEDS: Isosorbide MONOnitrate (24 HR) 30 MG TAB.ER.24H PO SCH (09:50)
[2020-06-20] MEDS: Metoprolol 100 MG TABLET PO SCH (09:50)
[2020-06-20] MEDS: Furosemide 20 MG/2 ML VIAL IVP SCH (09:50)
[2020-06-20] MEDS: Silvasorb 44.4 ML TUBE TP SCH (15:22)
[2020-06-20] MEDS ORDERED: cefTRIAXone 1,000 MG in Water for inj. (sterile) 10 ML IVP ONE (17:27)
[2020-06-20] MEDS: cefTRIAXone 1,000 MG in Water for inj. (sterile) 10 ML IVP SCH (18:10)
[2020-06-20] MEDS: Furosemide 20 MG TABLET PO SCH (18:10)
[2020-06-20] MEDS: Gabapentin 300 MG CAPSULE PO SCH (21:18)
[2020-06-21] MEDS: *HR* Heparin 5,000 UNIT/ML VIAL SQ SCH ×2 (05:12→18:34)
[2020-06-21] MEDS: Insulin LISPRO 300 UNITS/3 ML VIAL SQ SCH ×3 (07:30→16:30)
[2020-06-21] MEDS: Silvasorb 44.4 ML TUBE TP SCH (09:00)
[2020-06-21] MEDS: Torsemide 20 MG TABLET PO SCH (11:13)
[2020-06-21] MEDS: Cyanocobalamin (B-12) 1,000 MCG TABLET PO SCH (11:13)
[2020-06-21] MEDS: Furosemide 20 MG TABLET PO SCH ×2 (11:14→18:33)
[2020-06-21] MEDS: Isosorbide MONOnitrate (24 HR) 30 MG TAB.ER.24H PO SCH (11:14)
[2020-06-21] MEDS: Aspirin Enteric Coated 81 MG Tablet PO SCH (11:14)
[2020-06-21] MEDS: Gabapentin 300 MG CAPSULE PO SCH ×3 (11:14→21:30)
[2020-06-21] MEDS: Metoprolol 100 MG TABLET PO SCH (11:14)
[2020-06-21 14:38] LABS: Hematocrit 40.3 % (35.3-44.9); Hemoglobin 12.9 g/dL (11.5-15.4); Mean Corpuscular Hemoglobin 29.7 pg (28.0-33.3); Mean Corpuscular Volume 92.6 fL (83.0-100.0); Mean Platelet Volume 10.8 fL (9.4-12.4); Platelet Count 145 K/mcL (140-400); Red Blood Count 4.35 M/mcL (3.82-4.97); Red Cell Distribution Width 16.8 % (11.5-14.5); White Blood Count 5.4 K/mcL (4.3-11.1)
[2020-06-21 14:54] LABS: Alanine Aminotransferase 26 Units/L (7-52); Albumin 3.2 g/dL (3.5-5.7); Alkaline Phosphatase 223 Units/L (34-104); Aspartate Amino Transferase 62 Units/L (13-39); BUN/Creatinine Ratio 38 (6-26); Bilirubin,Total 1.5 mg/dL (0.3-1.0); Blood Urea Nitrogen 24 mg/dL (8-23); Calcium 8.9 mg/dL (8.6-10.3); Carbon Dioxide 32 mEq/L (23-29); Chloride 92 mEq/L (98-107); Globulin 3.3 g/dL (2.4-3.5); Glucose 164 mg/dL (70-105); Osmolality,Calculated 282 (280-300); Potassium 3.5 mEq/L (3.5-5.1); Sodium 132 mEq/L (136-145); Total Protein 6.5 g/dL (6.4-8.9); eGFR For African Americans > 60 (> 60); eGFR For Non-African Americans > 60 (> 60)
[2020-06-21] MEDS: cefTRIAXone 1,000 MG in Water for inj. (sterile) 10 ML IVP SCH (18:33)
[2020-06-21] MEDS ORDERED: Melatonin 3 MG TABLET PO ONE (20:34)
[2020-06-22] MEDS: *HR* Heparin 5,000 UNIT/ML VIAL SQ SCH ×2 (06:16→18:09)
[2020-06-22 06:52] LABS: Hematocrit 40.6 % (35.3-44.9); Mean Corpuscular Hemoglobin 29.2 pg (28.0-33.3); Mean Corpuscular Volume 91.2 fL (83.0-100.0); Mean Platelet Volume 11.1 fL (9.4-12.4); Platelet Count 181 K/mcL (140-400); Red Blood Count 4.45 M/mcL (3.82-4.97); Red Cell Distribution Width 16.7 % (11.5-14.5); White Blood Count 7.2 K/mcL (4.3-11.1)
[2020-06-22 07:09] LABS: Alanine Aminotransferase 29 Units/L (7-52); Albumin 3.3 g/dL (3.5-5.7); Albumin/Globulin Ratio 0.9 (1.1-2.2); Alkaline Phosphatase 234 Units/L (34-104); Aspartate Amino Transferase 64 Units/L (13-39); BUN/Creatinine Ratio 38 (6-26); Bilirubin,Total 1.9 mg/dL (0.3-1.0); Blood Urea Nitrogen 23 mg/dL (8-23); Calcium 9.2 mg/dL (8.6-10.3); Carbon Dioxide 35 mEq/L (23-29); Chloride 90 mEq/L (98-107); Globulin 3.5 g/dL (2.4-3.5); Glucose 109 mg/dL (70-105); Osmolality,Calculated 282 (280-300); Potassium 3.3 mEq/L (3.5-5.1); Sodium 134 mEq/L (136-145); Total Protein 6.8 g/dL (6.4-8.9); eGFR For African Americans > 60 (> 60); eGFR For Non-African Americans > 60 (> 60)
[2020-06-22] MEDS: Insulin LISPRO 300 UNITS/3 ML VIAL SQ SCH ×3 (09:13→18:00)
[2020-06-22] MEDS: Isosorbide MONOnitrate (24 HR) 30 MG TAB.ER.24H PO SCH (10:09)
[2020-06-22] MEDS: Furosemide 20 MG TABLET PO SCH ×2 (10:09→18:09)
[2020-06-22] MEDS: Aspirin Enteric Coated 81 MG Tablet PO SCH (10:09)
[2020-06-22] MEDS: Metoprolol 100 MG TABLET PO SCH (10:09)
[2020-06-22] MEDS: Gabapentin 300 MG CAPSULE PO SCH ×3 (10:09→21:47)
[2020-06-22] MEDS: Cyanocobalamin (B-12) 1,000 MCG TABLET PO SCH (10:09)
[2020-06-22] MEDS: Torsemide 20 MG TABLET PO SCH (10:12)
[2020-06-22] MEDS: Silvasorb 44.4 ML TUBE TP SCH (10:15)
[2020-06-22] MEDS: cefTRIAXone 1,000 MG in Water for inj. (sterile) 10 ML IVP SCH (18:05)
[2020-06-22] MEDS: Melatonin 3 MG TABLET PO PRN (21:59)
[2020-06-22] MEDS: *HR* HYDROcodone/Acet 5/325 mg TABLET PO PRN (22:05)
[2020-06-23 03:31] LABS: Hematocrit 37.6 % (35.3-44.9); Hemoglobin 12.3 g/dL (11.5-15.4); Mean Corpuscular HGB Conc 32.7 g/dL (31.6-35.5); Mean Corpuscular Hemoglobin 29.8 pg (28.0-33.3); Mean Platelet Volume 10.9 fL (9.4-12.4); Platelet Count 164 K/mcL (140-400); Red Blood Count 4.13 M/mcL (3.82-4.97); Red Cell Distribution Width 16.9 % (11.5-14.5); White Blood Count 6.7 K/mcL (4.3-11.1)
[2020-06-23 03:51] LABS: Alanine Aminotransferase 26 Units/L (7-52); Albumin 3.1 g/dL (3.5-5.7); Alkaline Phosphatase 209 Units/L (34-104); Aspartate Amino Transferase 57 Units/L (13-39); BUN/Creatinine Ratio 35 (6-26); Bilirubin,Total 1.7 mg/dL (0.3-1.0); Blood Urea Nitrogen 20 mg/dL (8-23); Calcium 8.9 mg/dL (8.6-10.3); Carbon Dioxide 35 mEq/L (23-29); Chloride 91 mEq/L (98-107); Globulin 3.2 g/dL (2.4-3.5); Glucose 98 mg/dL (70-105); Osmolality,Calculated 281 (280-300); Potassium 3.4 mEq/L (3.5-5.1); Sodium 134 mEq/L (136-145); Total Protein 6.3 g/dL (6.4-8.9); eGFR For African Americans > 60 (> 60); eGFR For Non-African Americans > 60 (> 60)
[2020-06-23] MEDS: *HR* HYDROcodone/Acet 5/325 mg TABLET PO PRN ×2 (04:05→23:03)
[2020-06-23] MEDS: *HR* Heparin 5,000 UNIT/ML VIAL SQ SCH ×2 (05:53→17:48)
[2020-06-23] MEDS: Insulin LISPRO 300 UNITS/3 ML VIAL SQ SCH ×3 (09:43→17:21)
[2020-06-23] MEDS: Isosorbide MONOnitrate (24 HR) 30 MG TAB.ER.24H PO SCH (09:48)
[2020-06-23] MEDS: Cyanocobalamin (B-12) 1,000 MCG TABLET PO SCH (09:49)
[2020-06-23] MEDS: Furosemide 20 MG TABLET PO SCH ×2 (09:49→17:48)
[2020-06-23] MEDS: Metoprolol 100 MG TABLET PO SCH (09:49)
[2020-06-23] MEDS: Gabapentin 300 MG CAPSULE PO SCH ×3 (09:49→20:26)
[2020-06-23] MEDS: Aspirin Enteric Coated 81 MG Tablet PO SCH (09:49)
[2020-06-23] MEDS: Silvasorb 44.4 ML TUBE TP SCH (09:53)
[2020-06-23] MEDS: Torsemide 20 MG TABLET PO SCH (09:53)
[2020-06-23] MEDS: Acetaminophen 325 MG TABLET PO PRN (15:02)
[2020-06-23] MEDS: Nitrofurantoin (BID) 100 MG CAPSULE PO SCH (17:48)
[2020-06-23] MEDS: Melatonin 3 MG TABLET PO PRN (23:03)
[2020-06-24] MEDS: Acetaminophen 325 MG TABLET PO PRN (05:13)
[2020-06-24] MEDS: *HR* Heparin 5,000 UNIT/ML VIAL SQ SCH (05:13)
[2020-06-24 05:23] LABS: Hematocrit 38.8 % (35.3-44.9); Hemoglobin 12.4 g/dL (11.5-15.4); Mean Corpuscular Hemoglobin 29.9 pg (28.0-33.3); Mean Corpuscular Volume 93.5 fL (83.0-100.0); Mean Platelet Volume 11.3 fL (9.4-12.4); Platelet Count 188 K/mcL (140-400); Red Blood Count 4.15 M/mcL (3.82-4.97); Red Cell Distribution Width 17.1 % (11.5-14.5); White Blood Count 6.4 K/mcL (4.3-11.1)
[2020-06-24 05:25] LABS: Basophils # 0.1 K/mcL (0.0-0.2); Eosinophils # 0.5 K/mcL (0.0-0.6); Eosinophils % 7.1 %; Hematocrit 38.9 % (35.3-44.9); Hemoglobin 12.4 g/dL (11.5-15.4); Immature Granulocytes % 0.3 % (0-4); Lymphocytes # 0.7 K/mcL (0.6-4.6); Lymphocytes % 11.3 %; Mean Corpuscular HGB Conc 31.9 g/dL (31.6-35.5); Mean Corpuscular Hemoglobin 29.9 pg (28.0-33.3); Mean Corpuscular Volume 93.7 fL (83.0-100.0); Mean Platelet Volume 10.7 fL (9.4-12.4); Monocytes # 0.8 K/mcL (0.0-1.3); Neutrophils # 4.3 K/mcL (1.6-8.9); Platelet Count 181 K/mcL (140-400); Red Blood Count 4.15 M/mcL (3.82-4.97); Segmented Neutrophils % 68.3 %; White Blood Count 6.3 K/mcL (4.3-11.1)
[2020-06-24 05:47] LABS: Alanine Aminotransferase 25 Units/L (7-52); Alkaline Phosphatase 195 Units/L (34-104); Aspartate Amino Transferase 47 Units/L (13-39); BUN/Creatinine Ratio 39 (6-26); Bilirubin,Total 1.7 mg/dL (0.3-1.0); Blood Urea Nitrogen 21 mg/dL (8-23); Calcium 8.8 mg/dL (8.6-10.3); Carbon Dioxide 33 mEq/L (23-29); Chloride 92 mEq/L (98-107); Globulin 3.1 g/dL (2.4-3.5); Glucose 92 mg/dL (70-105); Osmolality,Calculated 283 (280-300); Potassium 3.4 mEq/L (3.5-5.1); Sodium 135 mEq/L (136-145); Total Protein 6.1 g/dL (6.4-8.9); eGFR For African Americans > 60 (> 60); eGFR For Non-African Americans > 60 (> 60)
[2020-06-24 06:31] VITALS: BP 154/66
[2020-06-24] MEDS: Insulin LISPRO 300 UNITS/3 ML VIAL SQ SCH (08:29)
[2020-06-24] MEDS: Gabapentin 300 MG CAPSULE PO SCH (09:24)
[2020-06-24] MEDS: Furosemide 20 MG TABLET PO SCH (09:25)
[2020-06-24] MEDS: Cyanocobalamin (B-12) 1,000 MCG TABLET PO SCH (09:25)
[2020-06-24] MEDS: Isosorbide MONOnitrate (24 HR) 30 MG TAB.ER.24H PO SCH (09:25)
[2020-06-24] MEDS: Metoprolol 100 MG TABLET PO SCH (09:26)
[2020-06-24] MEDS: Nitrofurantoin (BID) 100 MG CAPSULE PO SCH (09:26)
[2020-06-24] MEDS: Torsemide 20 MG TABLET PO SCH (09:26)
[2020-06-24] MEDS: Aspirin Enteric Coated 81 MG Tablet PO SCH (09:27)
[2020-06-24] MEDS: Silvasorb 44.4 ML TUBE TP SCH (09:27)
== END 2020-06-24 10:49 | DRG 280 ==
LOC: 3BNU 14:31 → EMEROOARM 14:31 → SUATTDRO 18:02 → 3BNU 18:53 → SUATTDRO 06-21 14:31
PROVIDERS: ADMIT Student in an Organized Health Care Education/Training Program; ATTEND Internal Medicine